=== PATIENT | male | born 1940 | race Caucasian/White ===

== ENCOUNTER → 2017-03-26 | Outpatient (CLI) | payer OTHER, BC ==
[~2017-03-26] MED LIST: ASPIR 8181 M1 PO; CHLORTHALIDONE25 MG PO; COQ-10100 MG PO; Centrum Silver,Certa PO; Cozaar PO; Dilaudid PO; Ecotrin PO; LANSOPRAZOLE30 MG PO; LIDODERM 5% P1 PATCH; METAMUCIL0.52 GM PO; METOPROLOL SUC200 MG PO; PRAVASTATIN SOD80 MG PO; Pravachol PO; Prevacid PO; Senokot S,Pericolace PO; Toprol XL PO; VALSARTAN160 MG PO; [UNRECOGNIZED DRUG - OTHER] PO; [UNRECOGNIZED DRUG - OTHER] PO; celeBREX PO
== END | disposition home or self-care (01) ==
LOC: NUC 07:36
DX: M19.012 Primary osteoarthritis, left shoulder (principal); R93.7 Abnormal findings on diagnostic imaging of other parts of musculoskeletal system; M54.12 Radiculopathy, cervical region; Z96.612 Presence of left artificial shoulder joint
CPT/HCPCS: 78315; A9503